=== PATIENT | female | born 1935 | race Caucasian/White ===

== ENCOUNTER 2020-08-18 07:09 | Emergency (ER) | payer MEDICARE, OTHER ==
[~2020-08-18 07:09] MED LIST: ASPIRIN81 MG PO; METOPROLOL 1212.5 MG PO; ORENCIA125 MG/1 M SC; SYNTHROID50 MCG PO; XALATAN2.5 ML OU
[2020-08-18 08:22] LABS: ALBUMIN 3.1 g/dL (3.4-5.0); BASOPHIL 0.4 % (0-2); BILIRUBIN - TOTAL 0.7 mg/dL (0.2-1.0); BUN/CREAT RATIO (CALC) 18.3 RATIO; CREATININE 0.71 mg/dL (0.51-0.95); EOSINOPHIL 1.7 % (0-7); GLOBULIN (CALCULATION) 3.6 g/dL; HCT 39.6 % (37.0-47.0); HGB 12.7 g/dl (12.5-16.0); LYMPHOCYTE 17.4 % (15-48); MCH 30.8 pg (25.0-31.0); MCHC 32.1 g/dL (32.0-36.0); MCV 95.9 fL (78.0-100.0); MONOCYTE 5.5 % (0-12); MPV 11.4 fL (6.0-9.5); NEUTROPHIL 74.3 % (41-80); NRBC 0; PLT 130 K/uL (150-400); POTASSIUM 3.4 mmol/L (3.5-5.1); RBC 4.13 M/uL (4.20-5.40); RDW 13.9 % (11.5-14.0); TOTAL PROTEIN 6.7 g/dL (6.4-8.2); WBC 7.6 K/uL (4.0-10.5)
[2020-08-18 08:25] LABS: INR 1.89 (0.9-1.2); PROTHROMBIN TIME 20.6 SECONDS (11.4-13.6)
== END 2020-08-18 13:50 | disposition home or self-care (01) ==
LOC: FER 07:09
PROVIDERS: Emergency Medicine
DX: S02.2XXA Fracture of nasal bones, initial encounter for closed fracture (principal); S53.401A Unspecified sprain of right elbow, initial encounter; S43.401A Unspecified sprain of right shoulder joint, initial encounter; S83.91XA Sprain of unspecified site of right knee, initial encounter; S20.211A Contusion of right front wall of thorax, initial encounter; N63.10 Unspecified lump in the right breast, unspecified quadrant; M25.421 Effusion, right elbow; M25.461 Effusion, right knee; I10 Essential (primary) hypertension; F17.210 Nicotine dependence, cigarettes, uncomplicated; Z88.0 Allergy status to penicillin; Z79.01 Long term (current) use of anticoagulants; Z79.899 Other long term (current) drug therapy; W10.9XXA Fall (on) (from) unspecified stairs and steps, initial encounter; Y92.009 Unspecified place in unspecified non-institutional (private) residence as the place of occurrence of the external cause
CPT/HCPCS: 36415; 70450; 70486; 71045; 71260; 72072; 72125; 73030; 73080; 73200; 73560; 73700; 80053; 84484; 85025; 85610; 93005; Q9967